=== PATIENT | female | born 1985 | race African-American/Black ===

== ENCOUNTER → 2019-10-26 08:28 | Outpatient (CLI) | payer OTHER, SELFPAY ==
--- NOTE | 2019-10-26 09:13 | DI.MG.S_ITS ---
Patient Name: JAN SHARMA date: 1985 Sex: F Attending Physician: Brooke Indications: Date: 10/26/2019 09:03 At the request of: AZIZA ALBRIGHT Procedure: MM diagnostic mammo BI BILATERAL DIGITAL DIAGNOSTIC MAMMOGRAM 3D/2D: 10/26/2019 CLINICAL: Baseline exam. Left breast discharge and axillary pain. No prior exams were available for comparison. The tissue of both breasts is heterogeneously dense. This may lower the sensitivity of mammography. No significant masses, calcifications, or other findings are seen in either breast. IMPRESSION: INCOMPLETE: NEEDS ADDITIONAL IMAGING EVALUATION Ultrasound to immediately follow this examination was recommended and scheduled. This exam was interpreted at Station ID: [id number]. NOTE: For mammograms, a report in lay terms will be sent to the patient. Approximately 15% of breast malignancies will not be visualized mammographically. In the management of a palpable breast mass, a negative mammogram must not discourage biopsy of a clinically suspicious lesion. Electronically Signed By: Sonny Pearce M.D. jr/:10/26/2019 09:27:10 ACR BI-RADS Category 0: Incomplete [id number]
--- NOTE | 2019-10-26 10:14 | DI.US.S_ITS ---
Patient Name: JAN SHARMA date: 1985 Sex: F Attending Physician: Brooke Indications: Date: 10/26/2019 10:07 At the request of: AZIZA ALBRIGHT Procedure: US breast LT limited ULTRASOUND OF LEFT BREAST AND AXILLA: 10/26/2019 CLINICAL: Left nipple bloody discharge and axillary pain. Comparison is made to exam dated: 10/26/2019 [facility]. Color flow and real-time ultrasound of the left breast axilla were performed. Padilla scale images of the real-time examination were reviewed. There is a benign 1.5 cm oval complicated cyst with a septated internal wall in the left breast central to the nipple anterior dept with a well-defined boundary and posterior acoustic enhancement. No suspicious abnormality seen sonographically in the left breast or the left axilla. IMPRESSION: BENIGN There is no sonographic evidence of malignancy. Annual screening mammography is recommended. This exam was interpreted at Station ID: [id number]. Electronically Signed By: Sonny Pearce M.D. jr/:10/26/2019 10:32:32 letter sent: Normal Exam Ultrasound BI-RADS: 2 Benign
== END ==
DX: R92.8 Other abnormal and inconclusive findings on diagnostic imaging of breast (principal); N60.02 Solitary cyst of left breast; N64.4 Mastodynia; N64.52 Nipple discharge
CPT/HCPCS: 76642; 77066; G0279